=== PATIENT | male | born 1945 | race Caucasian/White ===

== ENCOUNTER → 2018-03-30 14:02 | Outpatient (CLI) | payer MEDICARE, OTHER, SELFPAY | PROVIDERS: Family Provider Family Medicine; PCP Family Medicine; Visit Provider Ophthalmology | DX: H01.003 Unspecified blepharitis right eye, unspecified eyelid (principal) | CPT/HCPCS: 87070; 87205 ==

== ENCOUNTER → 2018-08-09 07:35 | Outpatient (CLI) | payer MEDICARE, OTHER, SELFPAY ==
--- NOTE | 2018-08-09 07:38 | DI.MRI.S_ITS ---
PROCEDURE: MR LUMBAR SPINE WO CON INDICATIONS: Low back pain. Bilateral leg pain and cramping TECHNIQUE: Noncontrast sagittal T1 spin echo and T2 fast echo, sagittal STIR, axial T1 and T2 fast spin echo through the lumbar spine. In cases with scoliosis, additional coronal T2 fast spin echo may be performed. COMPARISON: [facility], MR, L-SPINE W&WO CONTRAST, 12/07/2015, 13:23. [facility], MR, L-SPINE WITHOUT CONTRAST, 09/09/2014, 17:43. FINDINGS: Image quality: Excellent. Alignment and Curvature: Grade 1 retrolisthesis of L1 on L2 and grade 1 anterolisthesis of L3 on L4. Grade 1 retrolisthesis of L5 on S1. Overall these findings appear grossly unchanged. Bone Marrow: Postsurgical changes related to posterior spinal fixation from L4-S1 with interbody cage grafts. There is also presumed L4-L5 and L5-S1 left laminotomy. No acute vertebral body compression fractures. Spinal Cord: Conus medullaris terminates at the L1-L2 level. Visualized cord demonstrates normal signal and size. Paraspinous Soft Tissues: No paravertebral masses. Presumed T2 hyperintense left renal cysts L1-L2: Broad-based posterior disc bulge and bilateral facet arthropathy. Mild central canal narrowing which appears grossly unchanged. Moderate bilateral foraminal stenoses are grossly unchanged, right greater than left L2-L3: Broad-based posterior disc bulge and bilateral facet arthropathy. There is also interval increase in dorsal epidural lipomatosis and mild/moderate canal narrowing. There is partial effacement of the left and right lateral recess. This appears progressed since the prior study. Mild to moderate left foraminal stenosis and moderate to severe right foraminal narrowing, no interval change L3-L4: Mild broad-based posterior disc bulge. There is also mild dorsal epidural lipomatosis which appears grossly unchanged. There is mild/moderate canal narrowing as before. Mild partial effacement of the left right lateral recesses. Moderate left and severe right foraminal stenoses. No interval change. L4-L5: No high-grade residual canal narrowing. Moderate to severe left and right foraminal stenoses, with grossly unchanged appearance, partially obscured by hardware artifact L5-S1: No definite residual high-grade central canal stenosis. Moderate right foraminal narrowing which appears unchanged. There is effacement of the left lateral recess/subarticular stenosis and raising possibility of impingement of the left S1 nerve root. There is severe left foraminal narrowing although grossly unchanged. IMPRESSION: Interval increase in bilateral L2-L3 subarticular stenosis since the prior study dated 12/07/15. Slight increase in mild to moderate L2-L3 canal narrowing due to increased dorsal epidural lipomatosis. Persistent effacement of the left L5-S1 lateral recess and severe L5-S1 left foraminal narrowing. Remainder the examination appears grossly unchanged as detailed above by spinal level. Dictated by: Alex Galvan M.D. on 08/09/2018 at 9:09 Approved by: Alex Galvan M.D. on 08/09/2018 at 9:27
--- NOTE | 2018-08-09 07:40 | DI.US.S_ITS ---
PROCEDURE: US PERIPH VENOUS LOW EXTREM LT INDICATIONS: LEFT LOWER EXTREMITY PAIN/CRAMPING TECHNIQUE: Real-time imaging, as well as color and pulse Doppler interrogation, were performed of the lower extremity deep veins from the inguinal ligament to the popliteal fossa. COMPARISON: None. FINDINGS: The deep veins are normally compressible, and free of intraluminal thrombus. Color and pulse Doppler demonstrate normal phasic intraluminal flow. There is normal augmentation response to distal compression maneuver. IMPRESSION: No evidence of deep vein thrombosis involving the left lower extremity. Dictated by: Tala Garcia MD, PhD on 08/09/2018 at 9:09 Approved by: Tala Garcia MD, PhD on 08/09/2018 at 9:09
== END ==
PROVIDERS: Family Provider Family Medicine; PCP Family Medicine; Visit Provider Neurological Surgery
DX: M79.605 Pain in left leg (principal); M48.061 Spinal stenosis, lumbar region without neurogenic claudication; R25.2 Cramp and spasm; E88.2 Lipomatosis, not elsewhere classified
CPT/HCPCS: 72148; 93971

== ENCOUNTER → 2019-01-25 06:38 | Outpatient (CLI) | payer MEDICARE, OTHER, SELFPAY ==
[2019-01-25 08:11] LABS: Add Manual Diff / Slide Review NO; Basophils Absolute Auto 0 /uL (0-100); Basophils Percent Auto 0.4 % (0-2); Eosinophils Absolute Auto 100 /uL (0-450); Eosinophils Percent Auto 2.2 % (2-4); Hematocrit 39.7 % (41-53); Hemoglobin 13.3 g/dL (13.5-17.5); Lymphocytes Absolute Auto 2000 /uL (1100-4500); Lymphocytes Percent Auto 32.3 % (25-40); Mean Corpuscular HGB Conc 33.4 % (30-36); Mean Corpuscular Hemoglobin 31.9 PG (26-34); Mean Corpuscular Volume 95.5 fL (80-100); Monocytes Absolute Auto 500 /uL (0-900); Monocytes Percent Auto 8.3 % (3-14); Neutrophils Absolute Auto 3500 /uL (1500-7000); Neutrophils Percent Auto 56.8 % (50-75); Platelet Count 195 X10^3/uL (150-400); Red Blood Cell Count 4.15 X10^6/uL (4.5-5.9); Red Cell Distribution Width 13.4 % (11.6-14.8); White Blood Cell Count 6.2 X10^3/uL (4.5-11.0)
[2019-01-25 08:19] LABS: Alanine Aminotransferase 81 IU/L (21-72); Albumin 4.5 g/dL (3.5-5.0); Albumin Globulin Ratio 1.6 (1.0-2.8); Alkaline Phosphatase 84 U/L (38-126); Aspartate Aminotransferase 84 IU/L (17-59); BUN Creatinine Ratio 22.5 (6-22); Bilirubin Total 0.3 mg/dL (0.2-1.3); Blood Urea Nitrogen 18 mg/dL (9-20); Calcium 9.3 mg/dL (8.4-10.2); Carbon Dioxide 25 mmol/L (22-32); Chloride 103 mmol/L (98-107); Cholesterol 162 mg/dL (140-199); Estimated Glomerular Filt Rate > 60.0 mL/min (>60); Globulin 2.9 g/dL (1.7-4.1); Glucose 94 mg/dL (80-110); HDL Cholesterol 41 mg/dL (40-60); HEMOLYSIS 29 (0-50); LDL Cholesterol Calculated 42 mg/dL (<100); Sodium 137 mmol/L (137-145); Total Protein 7.4 g/dL (6.3-8.2); Triglycerides 395 mg/dL (35-150)
[2019-01-25 09:40] LABS: Thyroid Stimulating Hormone 3.22 uIU/mL (0.47-4.68)
== END ==
PROVIDERS: PCP Family Medicine; Visit Provider Family Medicine
DX: E78.5 Hyperlipidemia, unspecified (principal); R89.9 Unspecified abnormal finding in specimens from other organs, systems and tissues; Z12.5 Encounter for screening for malignant neoplasm of prostate; Z13.0 Encounter for screening for diseases of the blood and blood-forming organs and certain disorders involving the immune mechanism; Z13.29 Encounter for screening for other suspected endocrine disorder
CPT/HCPCS: 36415; 80053; 80061; 84443; 85025; G0103

== ENCOUNTER 2019-06-25 16:30 | Outpatient (RCR) | payer MEDICARE, OTHER, SELFPAY ==
--- NOTE | 2019-03-28 17:45 | ST.OPIE ---
Provider Information Visit Care Team Role Provider Type Romero Kowalski MD Primary Care Provider Physician Specialty: Family Practice Address: [address] [place] [address], [id number] Email: [email or web address] Attending Provider Specialty: Address: Phone: Fax: Email: Speech-Language Pathology Initial Evaluation FREIGHT CALLER Clinical Instructor Line Start: 03/21/19 16:54 Freq: Status: Active Protocol: Document 03/28/19 15:01 LNK (Rec: 03/28/19 15:02 LNK [id number]) Clinical Instructor Signature Clinical Instructor Clinical Instructor Yes: Radha Kolb, PhD , [facility]-FREIGHT CALLER FREIGHT CALLER Language Evaluation Start: 03/21/19 16:54 Freq: Status: Active Protocol: Document 03/21/19 16:55 MG (Rec: 03/21/19 17:54 MG [id number]) Language Evaluation Session Time Visit Start Time 15:30 Visit Stop Time 16:25 Total Visit Minutes 55 Visit Information Visit Number 1 Plan of Care Dates 03/21/19-05/21/19 Insurance Information Medicare Next Note Type Next Note Type Treatment Note Referral Referring Physician Dr. Mendoza Reason for Referral Alzheimer's Language Evaluation Assessment Type Initial Evaluation Past Medical History Patient History Sha Martins, a 74-year-old male, was seen at [facility] for an initial evaluation of language. Information provided below was found in a chart review and interview with Sha and his , Annette. Sha has been diagnosed with early Alzheimer's disease. Sha reported that he has noticed difficulty finding words that uses daily or every so often. Sha and his noted that when Sha has a moment of word finding difficulty, he can become frustrated. Sha becomes even more frustrated when people try to name the word he is looking for for him. Sha's reported that he is a quick talker and, at times, avoids particular conversations with others due to word finding difficulties and memory loss. Sha sees Dr Mauricio Mendoza at [facility] for checkups and monitoring of his disease. Dr. Mendoza reported in a most recent visit some cognitive decline, as observed by MoCA testing results ( on 02/2018 and on 2018). Sha reported during his visit with Dr. Mendoza about seeing hallucinations. Sha reported in today's session that he no longer has hallucinations. They may have dissipated due to change in medication. Sha and his reported that they have some strategies in place to assist in Sha's cognitive decline, such as a calendar with scheduled events and appointments on the refrigerator, small journal to keep track of billing and working hours, and tiles ( small electronic devices attached to items to then locate via smart phone if lost or misplaced) to assist in locating objects. 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 Sha was rated to be 100% intelligible in unstructured conversation. - Formal Assessment Standardized Test Kerrick Naming Test (BNT) Administration Complete Raw Score 53/60 Results The BNT is a standardized tool used to assess a person's word finding capabilities. The person is shown a picture and asked to name it. Various cues are implemented in an order if the person cannot name the object immediately. The cueing hierarchy is as follow: Stimulus cue (phrase or sentence hinting at the object), Phonemic cue (first sound of the word), and Multiple choice cue (person chooses answer from a field of four words). Sha scored above average on this assessment tool (mean = 48.9). Sha needed a stimulus cue for the word cactus and then was successful at naming it. Sha needed a phonemic cue for the following words: harmonica, acorn, stethoscope, funnel. After having that cue , Sha was successful at naming the object. Sha needed the multiple choice cue for the following words: stilts, compass. After getting that cue, Sha was successful at naming the object. When given cueing at times, Sha identified all 60 items of the test. Sha's answers were spontaneous of delayed by 5-10 seconds. Student FREIGHT CALLER and FREIGHT CALLER noted that during testing, Sha became increasingly visibly frustrated. Sha would say, I know this word; I use this everyday or, yeah I know what it is when given a cue from the student FREIGHT CALLER. - Receptive Language Yes/No Questions Skill Level WFL Following Directions - Verbal Skill Level WFL Following Directions - Written Skill Level WFL Defining Words Skill Level WFL Auditory Comprehension Skill Level WFL - Expressive Language Automatic Speech Skill Level WFL Sentence Closure Skill Level WFL Object Naming Skill Level WFL Stating Functions Skill Level WFL Oral Expression Skill Level WFL - Findings Language Findings Sha presents with minor word find difficulties as well as mild cognitive impairments secondary to Alzheimer's disease. Sha's scores for standardized testing were WFL, however based on clinical judgment and knowledge of upcoming cognitive decline due to Alzheimer's disease, Sha should receive speech therapy as his deficits negatively impact his daily life and relationships with others. Sha becomes visibly frustrated when he cannot name an object, and gets upset with others when they try to assist him in finding the word he wants to use. This also affects his relationships with others, both professionally and personally. Sha and his note various other cognitive declines Sha is currently experiencing (e.g., forgetting appointment times, forgetting how and where he worked). Recommendations Recommendations Speech therapy is warranted at this time. Treatment will target word naming strategies, compensatory strategies for cognitive decline, and patient /caregiver education around Alzheimer's disease and what speech therapy can do. Treatment Goals Short Term Goals Sha will utilize various strategies (e.g., memory notebook, smartphone) in order to assist in memory recall and word finding difficulties. Sha will follow HEP designed by speech therapist and report better memory and word recall as reported by patient. Sha will participate in education centered around his disease and evidence-based treatment options for him. Long-Term Goals Sha will carry out ADLs without assistance from others based on the implementation of strategies learned from treatment.
--- NOTE | 2019-03-28 17:58 | ST.OPPOC ---
Care Team Visit Care Team Role Provider Type Romero Kowalski MD Primary Care Provider Physician Address: [address] [place] [address], [id number] Attending Provider Address: Phone: Fax: Speech Pathology Plan of Care YOUTH PASTOR Clinical Instructor Line Start: 03/21/19 16:54 Freq: Status: Active Protocol: Document 03/28/19 15:01 LNK (Rec: 03/28/19 15:02 LNK [id number]) Clinical Instructor Signature Clinical Instructor Clinical Instructor Yes: Radha Kolb, PhD , [facility]-YOUTH PASTOR Speech Pathology Plan of Care Plan of Care Dates 03/21/19-05/21/19 Short Term Goals Sha will utilize various strategies (e.g., memory notebook, smartphone) in order to assist in memory recall and word finding difficulties. Sha will follow HEP designed by speech therapist and report better memory and word recall as reported by patient. Sha will participate in education centered around his disease and evidence-based treatment options for him. [facility] Goals Sha will carry out ADLs without assistance from others based on the implementation of strategies learned from treatment. Please Sign and Return: I have reviewed this Plan of Care and certify that the skilled therapy services above are required to meet the patient?s needs. Physician Signature Date Printed Name and Credentials Clinical Instructor Signature Printed Name and Credentials
--- NOTE | 2019-04-12 15:47 | ST.OPTN ---
Care Team Visit Care Team Role Provider Type Romero Kowalski MD Primary Care Provider Physician Address: [address] [place] [address], [id number] Attending Provider Address: Phone: Fax: SHIFT LEADER Treatment Note SHIFT LEADER Clinical Instructor Line Start: 03/21/19 16:54 Freq: Status: Active Protocol: Document 04/12/19 15:26 LNK (Rec: 04/12/19 15:28 LNK [id number]) Clinical Instructor Signature Clinical Instructor Clinical Instructor Yes: Cortes, PhD, [facility]- SHIFT LEADER SHIFT LEADER Treatment Note Start: 03/28/19 17:44 Freq: Status: Active Protocol: Document 04/11/19 17:48 MG (Rec: 04/11/19 17:55 MG [id number]) Speech Pathology Treatment Note Session Time Visit Start Time 15:55 Visit Stop Time 16:25 Total Visit Minutes 30 Visit Information Visit Number 3 Plan of Care Dates 03/21/19-05/21/19 Insurance Information Medicare Setting Treatment Setting Outpatient Care Visit Type Note Type Treatment Note Next Note Type Next Note Type Treatment Note General Information General Information Sha Martins, a 74-year-old male, was seen at [facility] for an initial evaluation of language on 03/21. Sha has been diagnosed with early Alzheimer's disease . Sha reported that he has noticed difficulty finding words that uses daily or every so often. Sha and his , Wandy, noted that when Sha has a moment of word finding difficulty, he can become frustrated. Sha becomes even more frustrated when people try to name the word he is looking for for him . Sha's reported that he is a quick talker and, at times, avoids particular conversations with others due to word finding difficulties and memory loss. Sha sees Dr Mauricio Mendoza at [facility] for checkups and monitoring of his disease. Subjective Identification Type Name Others Present Family Observations/Patient Presentation Sha came alone today to his appointment and was notebly late. Sha did not call in advance to alert the student SHIFT LEADER that he was late. He initially appeared to be in a good mood, but when Sha had moments of word finding difficulty, he became visibly agitated and angered at himself. Rehab Expectation/Goals: Patient Goals Work on word recall strategies Patient Knowledge/Awareness of SHIFT LEADER Role Good in Treatment Parent/Caretake Knowledge/Awareness of Good SHIFT LEADER Role in Treatment Patient/Caregiver Compliance with Home Good Exercise Program Objective Short Term Goals Sha will utilize various strategies (e.g., memory notebook, smartphone) in order to assist in memory recall and word finding difficulties. Sha will follow HEP designed by speech therapist and report better memory and word recall as reported by patient. Sha will participate in education centered around his disease and evidence-basedt treatment options for him. [facility] Goals Sha will carry out ADLs without assistance from others based on the implementation of strategies learned from treatment. Treatment Activities Due to the shortened length of the session, student SHIFT LEADER spent time talking about his HEP and giving Sha more activities to do outside of speech therapy to increase his word finding abilities. Sha reported that he had not done any HEP because he has been extremely busy. Sha wanted to go through some of the worksheets with the student SHIFT LEADER. Overall, Sha correctly filled in missing words to complete an activity 90-95% of the time. When Sha was stuck, he benefitted from extra time to process what he wanted to say. Sha became visibly angered when he was stuck on words he couldn't think of. Sha mentioned feelings like he was dying because he couldn't think of a word. Student SHIFT LEADER is unsure if Sha has found a counselor at this time. Assessment Patient Response to Treatment Good Rehab Potential Good Impairments Identified ADLs Cognitive-Linguistic Skills Expressive Language Other Progress Towards Goals Good Progress Assessment of Overall Progress Improving Reviewed with Patient Goals Home Exercise Program Patient/Caregiver Understanding Good Plan Amount of Therapy Recommended 6 Months Frequency of Treatment Once a Week Length of Session 45 Minutes Therapeutic Contents Client Education Cognitive-Linguistic Training Expressive Language Training Home Exercise Program Provided Patient/Caregiver Instruction Home Exercise Program Questions/Concerns Therapy Recommendations Continue with Current Program
--- NOTE | 2019-04-25 18:20 | ST.OPTN ---
Care Team Visit Care Team Role Provider Type Romero Kowalski MD Primary Care Provider Physician Address: [address] [place] [address], [id number] Attending Provider Address: Phone: Fax: BACKREST ASSEMBLER Treatment Note BACKREST ASSEMBLER Clinical Instructor Line Start: 03/21/19 16:54 Freq: Status: Active Protocol: Document 04/12/19 15:26 LNK (Rec: 04/12/19 15:28 LNK [id number]) Clinical Instructor Signature Clinical Instructor Clinical Instructor Yes: Cortes, PhD, [facility]- BACKREST ASSEMBLER BACKREST ASSEMBLER Treatment Note Start: 03/28/19 17:44 Freq: Status: Active Protocol: Document 04/25/19 18:13 LNK (Rec: 04/25/19 18:20 LNK [id number]) Speech Pathology Treatment Note Session Time Visit Start Time 15:30 Visit Stop Time 16:25 Total Visit Minutes 55 Visit Information Visit Number 4 Plan of Care Dates 03/21/19-05/21/19 Insurance Information Medicare Setting Treatment Setting Outpatient Care Visit Type Note Type Treatment Note Next Note Type Next Note Type Treatment Note General Information General Information Sha Martins, a 74-year-old male, was seen at [facility] for an initial evaluation of language on 03/21. Sha has been diagnosed with early Alzheimer's disease . Sha reported that he has noticed difficulty finding words that uses daily or every so often. Sha and his , Wandy, noted that when Sha has a moment of word finding difficulty, he can become frustrated. Sha becomes even more frustrated when people try to name the word he is looking for for him . Sha's reported that he is a quick talker and, at times, avoids particular conversations with others due to word finding difficulties and memory loss. Sha sees Dr Mauricio Mendoza at [facility] for checkups and monitoring of his disease. Subjective Identification Type Name Others Present Family Observations/Patient Presentation Sha came alone today to his appointment and was notably late. hSa did not call in advance to alert the student BACKREST ASSEMBLER that he was late. He initially appeared to be in a good mood, but when Sha had moments of word finding difficulty, he became visibly agitated and angered at himself. Rehab Expectation/Goals: Patient Goals Work on word recall strategies Patient Knowledge/Awareness of BACKREST ASSEMBLER Role Good in Treatment Parent/Caretake Knowledge/Awareness of Good BACKREST ASSEMBLER Role in Treatment Patient/Caregiver Compliance with Home Good Exercise Program Objective Short Term Goals Sha will utilize various strategies (e.g., memory notebook, smartphone) in order to assist in memory recall and word finding difficulties. Sha will follow HEP designed by speech therapist and report better memory and word recall as reported by patient. Sha will participate in education centered around his disease and evidence-based treatment options for him. 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 Treatment Activities Spoke to Sha about his frustration with his inability to always say the word he wants to say. Sha noted that he does get angry, but that he has started to accept and work with the dx. Strategies that Sha has started put together include the use of TILES/trackers for objects like his phone, book, keys, etc. he has 4 TILES at home and he finds them to be very helpful. He also has been writing information about common plants he uses in his work and will use that book and his information to better clarify what he tells clients, etc. He reported that he and his have set up a communication center white board at home as a central location for information. 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 he was quite pleased with himself. it was a good session. Assessment Patient Response to Treatment Good Rehab Potential Good Impairments Identified ADLs Cognitive-Linguistic Skills Expressive Language Other Progress Towards Goals Good Progress Assessment of Overall Progress Improving Reviewed with Patient Goals Home Exercise Program Patient/Caregiver Understanding Good Plan Amount of Therapy Recommended 6 Months Frequency of Treatment Once a Week Length of Session 45 Minutes Therapeutic Contents Client Education Cognitive-Linguistic Training Expressive Language Training Home Exercise Program Provided Patient/Caregiver Instruction Home Exercise Program Questions/Concerns Therapy Recommendations Continue with Current Program
--- NOTE | 2019-05-07 18:00 | ST.OPTN ---
Care Team Visit Care Team Role Provider Type Romero Kowalski MD Primary Care Provider Physician Address: [address] [place] [address], [id number] Attending Provider Address: Phone: Fax: PROPERTY UNDERWRITER Treatment Note PROPERTY UNDERWRITER Clinical Instructor Line Start: 03/21/19 16:54 Freq: Status: Active Protocol: Document 04/12/19 15:26 LNK (Rec: 04/12/19 15:28 LNK [id number]) Clinical Instructor Signature Clinical Instructor Clinical Instructor Yes: Cortes, PhD, [facility]- PROPERTY UNDERWRITER PROPERTY UNDERWRITER Treatment Note Start: 03/28/19 17:44 Freq: Status: Active Protocol: Document 05/07/19 17:51 LNK (Rec: 05/07/19 17:59 LNK [email or web address]) Speech Pathology Treatment Note Session Time Visit Start Time 16:30 Visit Stop Time 17:20 Total Visit Minutes 50 Visit Information Visit Number 5 Plan of Care Dates 03/21/19-05/21/19 Insurance Information Medicare Setting Treatment Setting Outpatient Care Visit Type Note Type Treatment Note Next Note Type Next Note Type Treatment Note General Information General Information Sha Martins, a 74-year-old male, was seen at [facility] for an initial evaluation of language on 03/21. Sha has been diagnosed with early Alzheimer's disease . Sha reported that he has noticed difficulty finding words that uses daily or every so often. Sha and his , Wandy, noted that when Sha has a moment of word finding difficulty, he can become frustrated. Sha becomes even more frustrated when people try to name the word he is looking for for him . Sha's reported that he is a quick talker and, at times, avoids particular conversations with others due to word finding difficulties and memory loss. Sha sees Dr Mauricio Mendoza at [facility] for checkups and monitoring of his disease. Subjective Identification Type Name Others Present Family Rehab Expectation/Goals: Patient Goals Work on word recall strategies Patient Knowledge/Awareness of PROPERTY UNDERWRITER Role Good in Treatment Parent/Caretake Knowledge/Awareness of Good PROPERTY UNDERWRITER Role in Treatment Patient/Caregiver Compliance with Home Good Exercise Program Objective Short Term Goals Sha will utilize various strategies (e.g., memory notebook, smartphone) in order to assist in memory recall and word finding difficulties. Sha will follow HEP designed by speech therapist and report better memory and word recall as reported by patient. Sha will participate in education centered around his disease and evidence-based treatment options for him. Cable Tender Goals Sha will carry out ADLs without assistance from others based on the implementation of strategies learned from treatment. Treatment Activities Sha and I discussed his use of calendar and his smart phone to remember appointments. He showed up for an appointment yesterday. When asked about that, he noted he did not have his phone with him and was just checking in to see if he DID have an appointment. Today targeted word-finding activities that Sha can do using his smart phone. Apps such as cashcloud, Word Stacks, etc. were demonstrated with Sha working to solve the puzzles. he heeded frequent reminders re: how each game was to be played, which is pretty typical first. Sah made a list of these games along with Scrabble, crossword puzzles, Sodoku, word searches, etc to work with word recognition, maintaining vocabulary and ability to come up with words in different contexts for as long as he is able. Sha enjoyed these activites and indicated he planned to download them when he gets home. Assessment Patient Response to Treatment Good Rehab Potential Good Impairments Identified ADLs Cognitive-Linguistic Skills Expressive Language Other Progress Towards Goals Good Progress Assessment of Overall Progress Improving Reviewed with Patient Goals Home Exercise Program Patient/Caregiver Understanding Good Plan Amount of Therapy Recommended 6 Months Frequency of Treatment Once a Week Length of Session 45 Minutes Therapeutic Contents Client Education Cognitive-Linguistic Training Expressive Language Training Home Exercise Program Provided Patient/Caregiver Instruction Home Exercise Program Questions/Concerns Therapy Recommendations Continue with Current Program
--- NOTE | 2019-05-14 17:40 | ST.OPTN ---
Care Team Visit Care Team Role Provider Type Romero Kowalski MD Primary Care Provider Physician Address: [address] [place] [address], [id number] Rosina Millard PA-C Attending Provider Non-Staff Address: [address] [place] [address], [id number] MORTUARY OPERATIONS MANAGER Treatment Note MORTUARY OPERATIONS MANAGER Clinical Instructor Line Start: 03/21/19 16:54 Freq: Status: Active Protocol: Document 04/12/19 15:26 LNK (Rec: 04/12/19 15:28 LNK [id number]) Clinical Instructor Signature Clinical Instructor Clinical Instructor Yes: Cortes PhD, [facility]- MORTUARY OPERATIONS MANAGER MORTUARY OPERATIONS MANAGER Treatment Note Start: 03/28/19 17:44 Freq: Status: Active Protocol: Document 05/14/19 17:23 LNK (Rec: 05/14/19 17:39 LNK [email or web address]) Speech Pathology Treatment Note Session Time Visit Start Time 16:30 Visit Stop Time 17:10 Total Visit Minutes 40 Visit Information Visit Number 6 Plan of Care Dates 03/21/19-05/21/19 Insurance Information Medicare Setting Treatment Setting Outpatient Care Visit Type Note Type Treatment Note Next Note Type Next Note Type Treatment Note General Information General Information Sha Martins, a 74-year-old male, was seen at [facility] for an initial evaluation of language on 03/21. Sha has been diagnosed with early Alzheimer's disease . Sha reported that he has noticed difficulty finding words that uses daily or every so often. Sha and his , Wandy, noted that when Sha has a moment of word finding difficulty, he can become frustrated. Sha becomes even more frustrated when people try to name the word he is looking for for him . Sha's reported that he is a quick talker and, at times, avoids particular conversations with others due to word finding difficulties and memory loss. Sha sees Dr Mauricio Mendoza at [facility] for checkups and monitoring of his disease. Subjective Identification Type Name Others Present Family Rehab Expectation/Goals: Patient Goals Work on word recall strategies Patient Knowledge/Awareness of MORTUARY OPERATIONS MANAGER Role Good in Treatment Parent/Caretake Knowledge/Awareness of Good MORTUARY OPERATIONS MANAGER Role in Treatment Patient/Caregiver Compliance with Home Good Exercise Program Objective Short Term Goals Sha will utilize various strategies (e.g., memory notebook, smartphone) in order to assist in memory recall and word finding difficulties. Sha will follow HEP designed by speech therapist and report better memory and word recall as reported by patient. Sha will participate in education centered around his disease and evidence-based treatment options for him. Wafer Production Lead Worker Goals Sha will carry out ADLs without assistance from others based on the implementation of strategies learned from treatment. Treatment Activities Sha has not downloaded the apps as of yet because he is considering an iPad. Brain games activities were introduced: speed and distraction with naming. Spelling little known words give an written cue and mixed letters. Te game [employer] was played between Sha and me targetin) listing possible words within a category and 2) using appropriate clues to help the other person come up with some of the words. Sha enjoyed these activities and wrote down the names of different word-finding games he could get for home. Assessment Patient Response to Treatment Good Rehab Potential Good Impairments Identified ADLs Cognitive-Linguistic Skills Expressive Language Other Progress Towards Goals Good Progress Assessment of Overall Progress Improving Reviewed with Patient Goals Home Exercise Program Patient/Caregiver Understanding Good Plan Amount of Therapy Recommended 6 Months Frequency of Treatment Once a Week Length of Session 45 Minutes Therapeutic Contents Client Education Cognitive-Linguistic Training Expressive Language Training Home Exercise Program Provided Patient/Caregiver Instruction Home Exercise Program Questions/Concerns Therapy Recommendations Continue with Current Program
--- NOTE | 2019-05-21 17:42 | ST.OPPOC ---
Care Team Visit Care Team Role Provider Type Romero Kowalski MD Primary Care Provider Physician Address: [address] [place] [address], [id number] Rosina Millard PA-C Attending Provider Non-Staff Address: [address] [place] [address], [id number] Speech Pathology Plan of Care SSIS SSRS DEVELOPER Clinical Instructor Line Start: 03/21/19 16:54 Freq: Status: Active Protocol: Document 04/12/19 15:26 LNK (Rec: 04/12/19 15:28 LNK [id number]) Clinical Instructor Signature Clinical Instructor Clinical Instructor Yes: Cortes, PhD, [facility]- SSIS SSRS DEVELOPER Speech Pathology Plan of Care General Information Sha Martins, a 74-year-old male, was seen at [facility] for an initial evaluation of language on 03/21/19. Sha has been diagnosed with early Alzheimer's disease. Sha reported that he has noticed difficulty finding words that uses daily or every so often. Sha and his , Wandy, noted that when Sha has a moment of word finding difficulty, he can become frustrated. Sha becomes even more frustrated when people try to name the word he is looking for for him. Sha's reported that he is a quick talker and, at times, avoids particular conversations with others due to word finding difficulties and memory loss. Sha sees Dr. Mendoza at [facility] for checkups and monitoring of his disease. Visit Number 7 Plan of Care Dates 03/21/19-05/21/19 Insurance Information Medicare Patient Comments Sha came alone today to his appointment and was notebly late. Sha did not call in advance to alert the student SSIS SSRS DEVELOPER that he was late. He initially appeared to be in a good mood, but when Sha had moments of word finding difficulty, he became visibly agitated and angered at himself. Rehabilitation Expectation/ Work on word recall strategies Goals: Patient Goals Patient Knowledge/Awareness of Good SSIS SSRS DEVELOPER Role in Treatment Parent/Caretake Knowledge/ Good Awareness of SSIS SSRS DEVELOPER Role in Treatment Patient/Caregiver Compliance Good with Home Exercise Program Short Term Goals Sha will utilize various strategies (e.g., memory notebook, smartphone) in order to assist in memory recall and word finding difficulties. Sha will follow HEP designed by speech therapist and report better memory and word recall as reported by patient. Sha will participate in education centered around his disease and evidence-basedt treatment options for him. Long-Term Goals Sha will carry out ADLs without assistance from others based on the implementation of strategies learned from treatment. Treatment Activities Sha has not been implementing the games or other word-finding activities as of yet. He indicated that he is too busy with his work and getting tings completed before he goes on vacation in two weeks. [employer] game was introduced with activity to describe a word without saying the list of words provided. Difficult to determine as the words used are less frequently used and more memory and word-finding skills is needed. Sha was able to to note 1/3 words. Rehabilitation Potential Good Impairments Identified ADLs,Cognition,Expressive Language,Other Progress Towards Goals Good Progress Reviewed with Patient Goals,Home Exercise Program Patient Understanding Good Length of Therapy Recommended 6 Months Treatment Frequency Once a Week Treatment Duration 45 Minutes Therapeutic Contents Client Education,Cognitive-Linguistic Ammon, Expressive Language Train,Home Exercise Program Patient Recommendations Continue with Current Pro Please Sign and Return: I have reviewed this Plan of Care and certify that the skilled therapy services above are required to meet the patient?s needs. Physician Signature Date Printed Name and Credentials Clinical Instructor Signature Printed Name and Credentials
--- NOTE | 2019-05-21 17:43 | ST.OPTN ---
Care Team Visit Care Team Role Provider Type Romero Kowalski MD Primary Care Provider Physician Address: [address] [place] [address], [address] Rosina Millard PA-C Attending Provider Non-Staff Address: [address] [place] [address], [address] CATTLE EXAMINER Treatment Note CATTLE EXAMINER Clinical Instructor Line Start: 03/21/19 16:54 Freq: Status: Active Protocol: Document 04/12/19 15:26 LNK (Rec: 04/12/19 15:28 LNK [id number]) Clinical Instructor Signature Clinical Instructor Clinical Instructor Yes: Cortes PhD, [facility]- CATTLE EXAMINER CATTLE EXAMINER Treatment Note Start: 03/28/19 17:44 Freq: Status: Active Protocol: Document 05/21/19 16:36 LNK (Rec: 05/21/19 17:40 LNK [email or web address]) Speech Pathology Treatment Note Session Time Visit Start Time 16:45 Visit Stop Time 15:15 Total Visit Minutes 30 Visit Information Visit Number 7 Plan of Care Dates 03/21/19-05/21/19 Insurance Information Medicare Setting Treatment Setting Outpatient Care Visit Type Note Type Progress Note Next Note Type Next Note Type Treatment Note General Information General Information Sha Martins, a 74-year-old male, was seen at [facility] for an initial evaluation of language on 03/21. Sha has been diagnosed with early Alzheimer's disease . Sha reported that he has noticed difficulty finding words that uses daily or every so often. Sha and his , Wandy, noted that when Sha has a moment of word finding difficulty, he can become frustrated. Sha becomes even more frustrated when people try to name the word he is looking for for him . Sha's reported that he is a quick talker and, at times, avoids particular conversations with others due to word finding difficulties and memory loss. Sha sees Dr Mauricio Mendoza at [facility] for checkups and monitoring of his disease. Subjective Identification Type Name Others Present Family Rehab Expectation/Goals: Patient Goals Work on word recall strategies Patient Knowledge/Awareness of CATTLE EXAMINER Role Good in Treatment Parent/Caretake Knowledge/Awareness of Good CATTLE EXAMINER Role in Treatment Patient/Caregiver Compliance with Home Good Exercise Program Objective Short Term Goals Sha will utilize various strategies (e.g., memory notebook, smartphone) in order to assist in memory recall and word finding difficulties. Sha will follow HEP designed by speech therapist and report better memory and word recall as reported by patient. Sha will participate in education centered around his disease and evidence-basedt treatment options for him. Counter Manager Goals Sha will carry out ADLs without assistance from others based on the implementation of strategies learned from treatment. Treatment Activities Sha has not been implementing the games or other word-finding activities as of yet. He indicated that he is too busy with his work and getting tings completed before he goes on vacation in two weeks. [employer] game was introduced with activity to describe a word without saying the list of words provided. Difficult to determine as the words used are less frequently used and more memory and word-finding skills is needed. Sha was able to to note 1/3 words. Assessment Patient Response to Treatment Good Rehab Potential Good Impairments Identified ADLs Cognitive-Linguistic Skills Expressive Language Other Progress Towards Goals Good Progress Assessment of Overall Progress Improving Reviewed with Patient Goals Home Exercise Program Patient/Caregiver Understanding Good Plan Amount of Therapy Recommended 6 Months Frequency of Treatment Once a Week Length of Session 45 Minutes Therapeutic Contents Client Education Cognitive-Linguistic Training Expressive Language Training Home Exercise Program Provided Patient/Caregiver Instruction Home Exercise Program Questions/Concerns Therapy Recommendations Continue with Current Program
--- NOTE | 2019-06-25 17:23 | ST.OPDS ---
Care Team Visit Care Team Role Provider Type Romero Kowalski MD Primary Care Provider Physician Address: [address] [place] [address], [address] Rosina Millard PA-C Attending Provider Non-Staff Address: [address] [place] [address], [id number] FLEXO OPERATOR Treatment Note FLEXO OPERATOR Clinical Instructor Line Start: 03/21/19 16:54 Freq: Status: Active Protocol: Document 04/12/19 15:26 LNK (Rec: 04/12/19 15:28 LNK [id number]) Clinical Instructor Signature Clinical Instructor Clinical Instructor Yes: Cortes PhD, [facility]- FLEXO OPERATOR FLEXO OPERATOR Treatment Note Start: 03/28/19 17:44 Freq: Status: Active Protocol: Document 06/25/19 16:27 LNK (Rec: 06/25/19 17:17 LNK [email or web address]) Speech Pathology Treatment Note Session Time Visit Start Time 16:30 Visit Stop Time 17:05 Total Visit Minutes 35 Visit Information Visit Number 8 Plan of Care Dates 03/21/19-05/21/19 Insurance Information Medicare Setting Treatment Setting Outpatient Care Visit Type Note Type Discharge Summary General Information General Information Sha Martins, a 74-year-old male, has been seen at [facility] for cognitive/ linguistic therapy secondary to a diagnosis of Alzheimer's Disease since language on 03/21. disease. Sha reported that he has noticed difficulty finding words that uses daily or every so often. Sha and his , Wandy, noted that when Sha has a moment of word finding difficulty, he can become especially when people try to name the word he is looking. Sha's reported that he will avoid conversations with others due to word finding difficulties and memory loss. Sha sees Dr Mauricio Mendoza at [facility] for checkups and monitoring of his disease. Subjective Identification Type Name Rehab Expectation/Goals: Patient Goals Work on word recall strategies Patient Knowledge/Awareness of FLEXO OPERATOR Role Good in Treatment Parent/Caretake Knowledge/Awareness of Good FLEXO OPERATOR Role in Treatment Patient/Caregiver Compliance with Home Good Exercise Program Objective Short Term Goals Sha will utilize various strategies (e.g., memory notebook, smartphone) in order to assist in memory recall and word finding difficulties. Sha will follow HEP designed by speech therapist and report better memory and word recall as reported by patient. Sha will participate in education centered around his disease and evidence-basedt treatment options for him. Half-Way Goals Sha will carry out ADLs without assistance from others based on the implementation of strategies learned from treatment. Treatment Activities Sha has decided it is time to retire. He reported feeling some relief at the reduction of stress. He just returned from a vacation visiting [facility] and reported that he had a great time. Sha has started to incorporate some games or other word-finding activities into his daily routine and hopes to do more after he retires. [employer] game was payed today with Sha. He provided some excellent word clues and was able to solve several word puzzles. The game focuses on describing a specified word without saying the list of taboo words provided. At the end of the session Sha and this FLEXO OPERATOR discussed his stability in his cognitive skills at this time and that he really does not need therapy while he is in a stable period. He has incorporated many memory- saving activities into his day and he and his will work together as things come up. Sha will be discharged at this tiime. He will contact this clinic for additional therapy as needed in the future. Assessment Patient Response to Treatment Good Impairments Identified Cognitive-Linguistic Skills Expressive Language Other Progress Towards Goals Good Progress Appropriate for Discharge Assessment of Overall Progress Improving Plateaued Reviewed with Patient Progress Being Made Home Exercise Program Patient/Caregiver Understanding Good Plan Amount of Therapy Recommended No Further Therapy Frequency of Treatment No Further Therapy Therapy Recommendations Continue with Current Program Discharge from Speech Therapy
== END 2019-06-28 10:31 | disposition home or self-care (01) ==
LOC: SP 16:30
PROVIDERS: PCP Family Medicine; Visit Provider Physician Assistant
DX: G30.9 Alzheimer's disease, unspecified (principal); F02.80 Dementia in other diseases classified elsewhere, unspecified severity, without behavioral disturbance, psychotic disturbance, mood disturbance, and anxiety
CPT/HCPCS: 92507; 92523

== ENCOUNTER 2019-09-24 07:18 | Outpatient (CLI) | payer MEDICARE, OTHER, SELFPAY ==
--- NOTE | 2019-09-24 07:23 | DI.RAD.S_ITS ---
PROCEDURE: PAIN L/S FACET INJ/BLK 1ST CARMEN COMPARISON: None. INDICATIONS: SPONDYLOSIS FINDINGS: Bilateral type localization for stereotactic that the L2-3 and L3-4 facet joints. Successful needle tip localization bilaterally for 4 levels of facet joint injection as noted. IMPRESSION: Expected needle tip localization as noted. Dictated by: Jan Bailey M.D. on 09/24/2019 at 11:05 Approved by: Jan Bailey M.D. on 09/24/2019 at 11:06
--- NOTE | 2019-09-24 07:23 | DI.RAD.S_ITS ---
PROCEDURE: XR LUMBAR SPINE MIN 4V INDICATIONS: Axial low back pain status post fusion TECHNIQUE: 5 views of the lumbar spine were acquired. COMPARISON: [facility], [facility], XR L-SPINE 2-3V, 07/16/2018, 15:01. [facility], [facility], L-SPINE 2-3 VIEWS, 09/01/2014, 11:56. FINDINGS: Bones: 5 nonrib-bearing vertebrae are present. There is stable bony alignment in this patient has undergone prior bilateral is reviewed procedures spanning from L4-S1 on the left and L4-L5 on the right with interbody cage disc prostheses devices placed at L4-5 and L5-S1. No vertebral body compression fractures. No suspicious bony lesions. Soft tissues: Overlying bowel gas pattern is normal. No suspicious soft tissue calcifications. Oblique images: No pars defects. IMPRESSION: No evidence of device loosening or disruption or change in alignment is present in this patient has undergone prior L4-S1 fusion, with interbody disc cage prosthesis devices at L4-5 and L5-S1. Dictated by: Jan Bailey M.D. on 09/24/2019 at 8:46 Approved by: Jan Bailey M.D. on 09/24/2019 at 8:47
[2019-09-24 08:00] VITALS: BP 119/71; PULSE 60; RESP 18; TEMP 36.3; O2SAT 98
[2019-09-24 08:40] VITALS: BP 128/70; PULSE 70; RESP 16; O2SAT 100
[2019-09-24] MEDS: fentaNYL 100 MCG/2 ML INJ 50 MCG IV (08:41)
[2019-09-24] MEDS: MIDAZOLAM 5 MG/5 ML VIAL IV (08:41)
[2019-09-24 08:45] VITALS: BP 134/82; PULSE 64; RESP 16; O2SAT 97
[2019-09-24] MEDS: BUPIVACAINE 0.5% (PF) VIAL 2 ML INJ (08:46)
[2019-09-24] MEDS: IOPAMIDOL 15 ML VIAL 3 ML INJ (08:46)
[2019-09-24] MEDS: LIDOCAINE 1% 20 ML 10 ML INJ (08:46)
[2019-09-24] MEDS: BETAMETHASONE 30 MG/5 ML MDV 12 MG INJ (08:47)
[2019-09-24 08:50] VITALS: BP 99/78; PULSE 62; RESP 16; O2SAT 98
--- NOTE | 2019-09-24 08:52 | PC.NURSE ---
ASSISTING PT OFF TABLE AND TRANSPORTING TO POST PROC AREA IN STABLE CONDITION.
--- NOTE | 2019-09-24 08:56 | P.PCN_ITS ---
Procedures Date/Time Date of procedure: 09/24/19 Time of procedure: 08:56 General Procedure description: PREOP DIAGNOSIS 1. FACET ARTHROPATHY, 2. AXIAL LBP, 3. MULTILEVEL DDD, POST OP DIAGNOSIS 1. FACET ARTHROPATHY, 2. AXIAL LBP, 3. MULTILEVEL DDD, PROCEDURES 1. FLUORSCOPICALLY GUIDED CONTRAST CONTROLLED FACET JOINT INJECTIONS BILATERAL L2/3, L3/4 SURGEON: Kyle Walker, INDICATION Sha is referred by is referred for treatment of Axial LBP FINDINGS Multilevel Facet Arthropathy with Clinically significant axial LBP DESCRIPTION OF PROCEDURE Fluoroscopically guided, contrast-controlled bilateral L2/3, L3/4 facet joint injections. Following review of allergy and review of potential side effects and complications, including, but not necessarily limited to, infection, allergic reaction, local tissue breakdown, stroke, temporary or permanent nerve injury, paralysis, and possible , the patient indicated that the patient understood and agreed to proceed. An informed consent document was signed by the patient, witnessed by a nurse, and placed in the patient's chart. Additionally, other treatment options including medications, modalities, and physical therapy were reviewed with the patient. After review of previous anaesthesic history and IV conscious sedation the patient was deemed safe to proceed with todays procedure with IV conscious sedation as ASA class II designation. Safety time-out was performed to confirm patient ID, procedure to be performed and site of procedure. IV sedation was accomplished with a combination of 2mg of Versed and 50mcg of Fentanyl administered by the RN after DO order, titrated to patient comfort during the course of the procedure while the patient remained responsive to all verbal commands In the prone position, following sterile prep and drape of the lumbar region, the posterior aspect of the L2/3, L3/4 facet joints were identified fluoroscopically. The skin was anesthetized via a 25-gauge 1.5-inch needle with 1% lidocaine solution into the corresponding facet joints. At this point, a 22- gauge 3.5-inch spinal needle was atraumatically introduced and advanced under fluoroscopic guidance into the corresponding facet joints. Following negative aspiration, injections of approximately 0.2-cc of Isovue 200 confirmed interarticular placement without vascular uptake. The identical procedure was then performed at the L2/3, L3/4 facet joints on the left. Radiological data, including multiple fluoroscopic views of the lumbosacral spine, reveal a spinal needle at the L2/3, L3/4 facet joints bilaterally. Subsequent views show flow of contrast material both superiorly and inferiorly within the joint space without vascular or intrathecal uptake. At this point, a total of 0.5 cc including a mixture of 0.25cc Marcaine and 0.25cc betamethasone was injected without complication into each of the corresponding facet joints. The patient tolerated the procedure well without signs or symptoms of complications prior to transfer to the recovery area continued monitoring without incident. The patient was then transferred to the recovery area where they were observed for an appropriate period of time after the injection. The patient reported a VAS score of 7 prior to the procedure and a post-procedure VAS of 0. Total Fluoroscopy Time: 20.3 seconds Total Conscious Sedation Time: 24min POST OP INSTRUCTIONS The patient was provided a Pain Log to continue to record their response to the target-specific procedure prior to follow-up visit with their referring physician. Additionally, specific post-injection care instructions and a contact number to our office were provided if concerns arise regarding possible complications associated with the procedure are suspected. Kyle Walker DO Complications: none
[2019-09-24 09:00] VITALS: BP 113/72; PULSE 62; RESP 18; O2SAT 98
[2019-09-24 09:10] VITALS: BP 104/72; PULSE 60; RESP 16; O2SAT 99
--- NOTE | 2019-09-24 15:58 | PC.NURSE ---
Late entry-post procedure note: Patient arrived for post procedure monitoring at 0900. Awake and alert. Hand off report received from Santiago Desai RN. Transferred from w/c to recliner with stand by assist. VSS and O2 Sat WNL. Pain level 0/10. Denied any unusual numbness or tingling to lower extremities. Discharge instructions given and explained with good understanding to patient and spouse. Stable for discharge to home w/c to car at 0925
== END 2019-09-24 09:25 | disposition home or self-care (01) ==
LOC: RAD 07:19
PROVIDERS: PCP Family Medicine; Visit Provider Physical Medicine & Rehabilitation
DX: M47.816 Spondylosis without myelopathy or radiculopathy, lumbar region (principal); M54.5 Low back pain; M51.36 Other intervertebral disc degeneration, lumbar region
CPT/HCPCS: 64493; 64494; 72110; 99152; J0702; J2250; J3010

== ENCOUNTER 2019-12-10 07:58 | Outpatient (CLI) | payer MEDICARE, OTHER, SELFPAY ==
[2019-12-10] VITALS (13 sets, daily range): BP systolic 110–176; BP diastolic 59–99; PULSE 61–70; RESP 15–18; TEMP 36.3; O2SAT 96–100
--- NOTE | 2019-12-10 08:01 | DI.RAD.S_ITS ---
PROCEDURE: PAIN L/S FACET INJ/BLK 1ST CARMEN COMPARISON: [facility], XA, PAIN L/S FACET INJ/BLK 1ST CARMEN, 09/24/2019, 8:42. INDICATIONS: SPONDYLOSIS FINDINGS: Bilateral needle tip localization for 8 total levels, L2-L5, bilaterally, are documented. IMPRESSION: Successful needle tip localization is for L2-L5 bilateral medial branch block procedures. 8 total needle tip localizations. Dictated by: Jan Bailey M.D. on 12/11/2019 at 14:36 Approved by: Jan Bailey M.D. on 12/11/2019 at 15:32
[2019-12-10] MEDS: MIDAZOLAM 5 MG/5 ML VIAL IV (10:00)
[2019-12-10] MEDS: BUPIVACAINE 0.5% (PF) VIAL 5 ML INJ (10:03)
[2019-12-10] MEDS: LIDOCAINE 1% 20 ML 10 ML INJ (10:03)
[2019-12-10] MEDS: IOPAMIDOL 15 ML VIAL 3 ML INJ (10:03)
--- NOTE | 2019-12-10 10:13 | PC.NURSE ---
ASSISTING PT OFF TABLE AND TRANSPORTING TO POST PROC AREA IN STABLE CONDITION. PASSING RN CARE OF PT OFF TO TRISTIN Brown RN.
--- NOTE | 2019-12-10 10:16 | P.PCN_ITS ---
Procedures Date/Time Date of procedure: 12/10/19 Time of procedure: 10:16 General Procedure description: POST OP DIAGNOSIS 1. FACET ARTHROPATHY PROCEDURES 1. BILATERAL L2, L3, L4 AND L5 DIAGNOSTIC MB BLOCKS PHYSICIAN: DO DL Mccormick Sha is referred by for treatment of Bilateral Axial LBP s/p lumbar fusion. DESCRIPTION OF PROCEDURE Fluoroscopically guided, contrast-controlled bilateral L2, L3, L4 AND L5 medial branch blocks with 0.5cc of 0.5% Marcaine. Following review of allergy and review of potential side effects and complications, including, but not necessarily limited to, infection, allergic reaction, local tissue breakdown, nerve injury, paralysis, stroke and possible , the patient indicated that the patient understood and agreed to proceed. An informed consent document was signed by the patient, witnessed by a nurse, and placed in the patient's chart. After review of previous anaesthesic history and IV conscious sedation the patient was deemed safe to proceed with todays procedure with IV conscious sedation as ASA class II designation. Safety time-out was performed to confirm patient ID, procedure to be performed and site of procedure. IV sedation was accomplished with was administered by the RN after DO order, titrated to patient comfort during the course of the procedure while the patient remained responsive to all verbal commands In the prone position, following sterile prep and drape of the lumbar region, the right L2, L3, L4 and L5 anatomical location of the medial branch of the dorsal ramus was identified fluoroscopically. Subsequently an anesthetic skin wheal using 1% lidocaine solution was initiated at each of the anatomical spots. Subsequently then a 22-gauge 3.5-inch spinal needle was atraumatically introduced and advanced under fluoroscopic guidance at each of the corresponding sites at the right L2, L3, L4 and L5 MB. After negative aspiration, 0.2cc of Isovue 200 was injected, confirming placement without vascular or intrathecal uptake. Subsequently then 0.5cc of 0.5% Marcaine solution was injected at each of the corresponding sites at the right L2, L3, L4 and L5 medial branch locations. The identical procedure was replicated on the left. The patient tolerated the procedure well without signs or symptoms of complications. The patient tolerated the procedure well without signs or symptoms of complications prior to transfer to the recovery area continued monitoring without incident. Post-procedure, the patient was monitored initiating provocative activities to measure the amount of relief from block of the facetogenic pain. The patient reported a VAS of 7 prior to the procedure and a post-procedure VAS of 1. It has been a pleasure to assist in the diagnostic and therapeutic care of your patient. Total Fluoroscopy Time: 15 seconds Total Conscious Sedation Time: 24min POST OP INSTRUCTIONS The patient was provided with a Pain Log to complete over the next several hours and subsequent days prior to the patient's follow up with the ordering physician. 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 The patient is aware, was provided, once again, with a Pain Log and will follow up with the referring physician for review and clinical correlation Kyle Walker DO Complications: none
== END 2019-12-10 11:03 | disposition home or self-care (01) ==
LOC: RAD 08:00
PROVIDERS: PCP Family Medicine; Referring Provider Physical Medicine & Rehabilitation; Visit Provider Physical Medicine & Rehabilitation
DX: M47.816 Spondylosis without myelopathy or radiculopathy, lumbar region (principal); M54.5 Low back pain; Z98.1 Arthrodesis status
CPT/HCPCS: 64493; 64494; 64495; 99152; J2250; J3010

== ENCOUNTER → 2020-01-06 17:00 | Outpatient (CLI) | payer MEDICARE, OTHER, SELFPAY ==
[2020-01-06 17:34] LABS: Appearance Urine UA CLOUDY; Bilirubin Urine UA 3+ (NEGATIVE); Color Urine UA BROWN; Glucose Urine UA TRACE g/dL (Negative); Ketones Urine UA TRACE (NEGATIVE); Leukocyte Esterase Urine UA TRACE (NEGATIVE); Nitrite Urine UA NEGATIVE (Negative); Occult Blood Urine UA 3+ (Negative); Protein Urine UA 2+ (Negative); Specific Gravity Urine UA >=1.030 (1.000-1.035); pH Urine UA 5.5 (4.5-8.0)
[2020-01-06 17:35] LABS: Add Manual Diff / Slide Review NO; Basophils Absolute Auto 0 /uL (0-100); Basophils Percent Auto 0.6 % (0-2); Eosinophils Absolute Auto 100 /uL (0-450); Eosinophils Percent Auto 0.9 % (2-4); Hematocrit 42.3 % (41-53); Hemoglobin 14.5 g/dL (13.5-17.5); Lymphocytes Absolute Auto 1000 /uL (1100-4500); Lymphocytes Percent Auto 14.8 % (25-40); Mean Corpuscular HGB Conc 34.2 % (30-36); Mean Corpuscular Hemoglobin 32.2 PG (26-34); Mean Corpuscular Volume 94.2 fL (80-100); Monocytes Absolute Auto 600 /uL (0-900); Monocytes Percent Auto 9.1 % (3-14); Neutrophils Absolute Auto 5200 /uL (1500-7000); Neutrophils Percent Auto 74.6 % (50-75); Platelet Count 206 X10^3/uL (150-400); Red Blood Cell Count 4.49 X10^6/uL (4.5-5.9); Red Cell Distribution Width 13.9 % (11.6-14.8); White Blood Cell Count 6.9 X10^3/uL (4.5-11.0)
[2020-01-06 17:47] LABS: Ictotest Urine Positive (Negative)
[2020-01-06 17:48] LABS: Alanine Aminotransferase 745 IU/L (<50); Albumin 4.8 g/dL (3.5-5.0); Albumin Globulin Ratio 1.2 (1.0-2.8); Alkaline Phosphatase 1276 U/L (38-126); Amylase 116 U/L (30-110); Aspartate Aminotransferase 684 IU/L (17-59); BUN Creatinine Ratio 13.8 (6-22); Bilirubin Total 5.5 mg/dL (0.2-1.3); Blood Urea Nitrogen 11 mg/dL (9-20); C-Reactive Protein Quant 1.1 mg/dL (<1.0); Calcium 10.4 mg/dL (8.4-10.2); Carbon Dioxide 29 mmol/L (22-32); Chloride 101 mmol/L (98-107); Estimated Glomerular Filt Rate > 60.0 mL/min (>60); Glucose 108 mg/dL (80-110); HEMOLYSIS < 15 (0-50); Lipase 831 U/L (23-300); Potassium 4.2 mmol/L (3.4-5.1); Sodium 142 mmol/L (137-145); Total Protein 8.8 g/dL (6.3-8.2)
[2020-01-06 17:49] LABS: RBC Urine 30-100/HPF (0-5/HPF); Squamous Epithelial Cell Urine 0-1 /HPF (0-5/HPF); Transitional Epi Cells Urine 0-1/HPF (0-5/HPF); WBC Urine 5-10/HPF (0-5/HPF)
[2020-01-06 17:50] LABS: Amorphous Sediment Urine 1+; Bacteria Urine Few (2-10); Calcium Oxalate Crystals Urine Moderate; Culture Indicated Urine Specimen Cultured; Granular Casts Urine 5-10/LPF; Hyaline Casts Urine 5-10/LPF; Mucus Urine 3+ (Negative)
[2020-01-06 18:06] LABS: Free T4, Direct Thyroxine 1.28 ng/dL (0.78-2.19)
[2020-01-06 18:09] LABS: Erythrocyte Sedimentation Rate 16 MM/HR (0-15)
[2020-01-06 18:20] LABS: Thyroid Stimulating Hormone 3.48 uIU/mL (0.47-4.68)
== END ==
PROVIDERS: PCP Family Medicine; Referring Provider Internal Medicine; Visit Provider Internal Medicine
DX: E78.5 Hyperlipidemia, unspecified (principal); R11.0 Nausea; R31.9 Hematuria, unspecified; R63.4 Abnormal weight loss
CPT/HCPCS: 36415; 80053; 81001; 82150; 83690; 84439; 84443; 85025; 85651; 86140; 87086

== ENCOUNTER → 2020-01-09 10:58 | Outpatient (CLI) | payer MEDICARE, OTHER, SELFPAY ==
--- NOTE | 2020-01-09 11:01 | DI.CT.S_ITS ---
PROCEDURE: CT ABDOMEN PELVIS W CON INDICATIONS: panless jaundice/weight loss TECHNIQUE: After the administration of oral and intravenous contrast, 5 mm thick sections acquired from the diaphragms to the symphysis. 5 mm thick coronal and sagittal reformats were performed. For radiation dose reduction, the following was used: automated exposure control, adjustment of mA and/or kV according to patient size. COMPARISON: None. FINDINGS: Image quality: Excellent. ABDOMEN: Lung bases: Lung bases are clear. Heart size is normal. Solid organs: Liver is normal in size and enhancement there is right and left hepatic lobe biliary distention.. Gallbladder is hydropic, without internal calculus, with a craniocaudad length of up to 10.4 cm in maximal axial dimension of up to 4.3 cm.. Biliary system at the common duct is abnormally dilated and up to 19 mm in transverse dimension. The pancreatic duct is abnormally dilated through the neck, body and tail measuring almost 10 mm in maximal dimension. Pancreas enhances normally through the neck, body and tail but the pancreatic head there is a hypoenhancing mass like structure impinging on the pancreatic duct and common duct, measuring up to 2.6 x 2.7 cm, best seen centered on image 28 of series 2 and below. This appears to extend into the uncinate process, and track towards the ampulla. No adjacent adenopathy. Spleen is normal in size and enhancement. No adrenal nodules. Kidneys are normal in size and enhancement, without hydronephrosis. Peritoneum and bowel: Stomach, small bowel, and colon loops are normal in caliber and wall thickness. No free fluid or air. Nodes and vessels: No retroperitoneal or mesenteric adenopathy. Aorta and inferior vena cava are normal in caliber. Miscellaneous: No ventral hernias. PELVIS: Genitourinary: Bladder wall thickness is normal. Miscellaneous: No inguinal hernias or adenopathy. Bones: No suspicious bony lesions. No vertebral body compression fractures. Spine fixation, lumbosacral junction area, previously present. 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 No adenopathy is seen. No distant metastatic disease is found. Gastroenterology consultation is recommended for consideration of placement of biliary stent. Dictated by: Jan Bailey M.D. on 01/09/2020 at 13:34 Approved by: Jan Bailey M.D. on 01/09/2020 at 13:54
== END ==
PROVIDERS: PCP Family Medicine; Referring Provider Internal Medicine; Visit Provider Internal Medicine
DX: R17 Unspecified jaundice (principal); R63.4 Abnormal weight loss; K86.9 Disease of pancreas, unspecified; K82.1 Hydrops of gallbladder; K83.8 Other specified diseases of biliary tract; K86.89 Other specified diseases of pancreas
CPT/HCPCS: 74177; Q9967